=== PATIENT | male | born 1990 | race African-American/Black ===

== ENCOUNTER 2022-10-06 05:56 | Emergency (ER) | payer SELFPAY ==
[~2022-10-06] VITALS: Ht 175 cm; Wt 93.8 kg
[2022-10-06] MEDS ORDERED: cefTRIAXone 500 MG in WATER (STERILE) FOR INJECTION 5 ML IV ONE (06:30)
[2022-10-06] MEDS ORDERED: ACETAMINOPHEN 500 MG TAB (TYLENOL) PO ONE (06:30)
[2022-10-06] MEDS ORDERED: hydrALAZINE (APESOLINE) 20 MG/ML VIAL IV ONE (06:30)
[2022-10-06] MEDS ORDERED: cloNIDine 0.2 MG (CATAPRES) TAB PO ONE (06:30)
[2022-10-06] MEDS ORDERED: amLODIPine 10 MG (NORVASC) TAB PO ONE (06:30)
[2022-10-06] MEDS ORDERED: AZITHROMYCIN 250 MG TAB (ZITHROMAX) PO ONE (06:42)
--- NOTE | 2022-10-06 06:44 | ED GI ---
General Chief Complaint: Rect Problems Stated Complaint: RECTAL PAIN Nursing Triage Note: PATIENT VERBALIZED FOR THE PAST WEEK AND HALF HE HAS HAD RECTAL PAIN/STINGING. DENIES INJURY OR TRAUMA, DENIES BLOOD IN STOOL, NO HX OF HEMORRHOIDS. Source of Information: Patient Exam Limitations: No Limitations (JUANA PRESCOTT DO) History of Present Illness Date Seen by Provider: Oct 06, 2022 Time Seen by Provider: 06:10 Initial Comments Patient is a 31-year-old -[place] male with history of hypertension and anogenital warts who presents with rectal pain for the past week. Patient states that he has a longstanding history of "bumps"next to his anus and that they have recently become painful and are leaking fluid. He has not had recent receptive anal intercourse is currently [place] work [place] from [place]. Patient is concerned that he could have an STD. He denies rectal bleeding but does have pain with bowel movement. There is no care of hemorrhoids. The other symptoms or pain complaints. Patient does have a longstanding history of hypertension takes multiple antihypertensives, but only on days that he feels that it is a problem. He has not had any of his blood pressure medications in the past several days, but does have them available to him at his place of residence. Timing/Duration: 1 Week Severity/Quality: Other Location: Other Radiation: Other Activities at Onset: Other Modifying Factors: Improves With Other Associated Symptoms: Other (JUANA PRESCOTT DO) Location: Other (rectal) Modifying Factors: Worsens With Defecating Associated Symptoms: No Back Pain, No Chest Pain, No Diaphoresis, No Fever/Chills, No Fatigue, No Headache, No Heartburn, No Nausea/Vomiting, No Rash, No Shortness of Air, No Swelling/Mass in Abdomen, No Syncope, No Weakness (YAHAIRA GUNTER MD) Allergies and Home Medications Allergies Coded Allergies: No Known Drug Allergies (Unverified , 10/06/22) Patient Home Medication List Home Medication List Reviewed: Yes (JUANA PRESCOTT DO) Home Medication List Reviewed: Yes (YAHAIRA GUNTER MD) Lidocaine (Lidocaine) 5 % Cream..g., 15 GM TP UD Prescribed by: YAHAIRA GUNTER on 10/06/22 0816 Review of Systems Review of Systems Constitutional: see HPI EENTM: See HPI Respiratory: See HPI Cardiovascular: See HPI Genitourinary: See HPI Musculoskeletal: see HPI Skin: see HPI Psychiatric/Neurological: See HPI (JUANA PRESCOTT DO) Gastrointestinal: See HPI; Denies Rectal Bleeding (YAHAIRA GUNTER MD) Past Sxxjitk-Cqdstv-Blcgkx Hx Patient Social History Tobacco Use?: Yes Tobacco type used: Cigarettes Smoking Status: Current Everyday Smoker Substance use?: No Alcohol Use?: No (JUANA PRESCOTT DO) Tobacco Use?: No Substance use?: No (YAHAIRA GUNTER MD) Immunizations Up To Date Influenza Vaccine Up-to-Date: Yes; Up-to-Date First/Initial COVID19 Vaccinat: 2020 Second COVID19 Vaccination Osvaldo: 2020 (JUANA PRESCOTT DO) Past Medical History Surgery/Hospitalization HX: Hypertension, HIV, Non-compliance with medicine Respiratory: No Cardiac: Yes Hypertension Neurological: No (YAHAIRA GUNTER MD) Physical Exam Vital Signs Vital Signs - First Documented 10/06/22 06:10 Temp 36.6 Pulse 90 Resp 18 B/P (MAP) 209/128 (155) Pulse Ox 100 O2 Delivery Room Air (YAHAIRA GUNTER MD) Vital Signs Capillary Refill : Less Than 3 Seconds (JUANA PRESCOTT DO) Height/Weight/BMI Height: '" Weight: lbs. oz. kg; 30.00 BMI Method: General Appearance: WD/WN, no apparent distress Respiratory: lungs clear Gastrointestinal: non tender, soft Male: other (BB size anal warts with fresh granulation tissue that is cracked. No gross drainage. No hemorrhoids. 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, no motor/sensory deficits, alert, oriented x 3 Skin: normal color, warm/dry (YAHAIRA GUNTER MD) Focused Exam Sepsis Stage: Ruled Out (JUANA PRESCOTT DO) Progress/Results/Core Measures Results/Orders Lab Results Laboratory Tests Test 10/06/22 06:55 10/06/22 07:02 10/06/22 07:17 Range/Units White Blood Count 10.6 4.3-11.0 10^3/uL Red Blood Count 4.78 4.30-5.52 10^6/uL Hemoglobin 15.2 13.3-17.7 g/dL Hematocrit 43 40-54 % Mean Corpuscular Volume 89 80-99 fL Mean Corpuscular Hemoglobin 32 25-34 pg Mean Corpuscular Hemoglobin Concent 36 32-36 g/dL Red Cell Distribution Width 13.7 10.0-14.5 % Platelet Count 261 130-400 10^3/uL Mean Platelet Volume 10.6 9.0-12.2 fL Immature Granulocyte % (Auto) 1 % Neutrophils (%) (Auto) 36 L 42-75 % Lymphocytes (%) (Auto) 55 H 12-44 % Monocytes (%) (Auto) 7 0-12 % Eosinophils (%) (Auto) 1 0-10 % Basophils (%) (Auto) 1 0-10 % Neutrophils # (Auto) 3.8 1.8-7.8 10^3/uL Lymphocytes # (Auto) 5.8 H 1.0-4.0 10^3/uL Monocytes # (Auto) 0.7 0.0-1.0 10^3/uL Eosinophils # (Auto) 0.1 0.0-0.3 10^3/uL Basophils # (Auto) 0.1 0.0-0.1 10^3/uL Immature Granulocyte # (Auto) 0.1 0.0-0.1 10^3/uL Sodium Level 137 135-145 MMOL/L Potassium Level 4.0 3.6-5.0 MMOL/L Chloride Level 104 98-107 MMOL/L Carbon Dioxide Level 22 21-32 MMOL/L Anion Gap 11 5-14 MMOL/L Blood Urea Nitrogen 13 7-18 MG/DL Creatinine 1.00 0.60-1.30 MG/DL Estimat Glomerular Filtration Rate 102 BUN/Creatinine Ratio 13 Glucose Level 96 70-105 MG/DL Calcium Level 9.2 8.5-10.1 MG/DL Corrected Calcium 9.2 8.5-10.1 MG/DL Magnesium Level 2.0 1.6-2.4 MG/DL Total Bilirubin 0.5 0.1-1.0 MG/DL Aspartate Amino Transf (AST/SGOT) 22 5-34 U/L Alanine Aminotransferase (ALT/SGPT) 21 0-55 U/L Alkaline Phosphatase 87 40-136 U/L Troponin I < 0.30 <0.30 NG/ML Pro-B-Type Natriuretic Peptide 181.7 H <125.0 PG/ML Total Protein 8.3 H 6.4-8.2 GM/DL Albumin 4.0 3.2-4.5 GM/DL Urine Color YELLOW Urine Clarity CLEAR Urine pH 7.5 5-9 Urine Specific [place] 1.015 L 1.016-1.022 Urine Protein NEGATIVE NEGATIVE Urine Glucose (UA) NEGATIVE NEGATIVE Urine Ketones NEGATIVE NEGATIVE Urine Nitrite NEGATIVE NEGATIVE Urine Bilirubin NEGATIVE NEGATIVE Urine Urobilinogen 0.2 < = 1.0 MG/DL Urine Leukocyte Esterase NEGATIVE NEGATIVE Urine RBC (Auto) NEGATIVE NEGATIVE Urine RBC NONE /HPF Urine WBC RARE /HPF Urine Squamous Epithelial Cells 2-5 /HPF Urine Crystals NONE /LPF Urine Bacteria NEGATIVE /HPF Urine Casts NONE /LPF Urine Mucus NEGATIVE /LPF Urine Culture Indicated NO Urine Opiates Screen NEGATIVE NEGATIVE Urine Oxycodone Screen NEGATIVE NEGATIVE Urine Methadone Screen NEGATIVE NEGATIVE Urine Propoxyphene Screen NEGATIVE NEGATIVE Urine Barbiturates Screen NEGATIVE NEGATIVE Ur Tricyclic Antidepressants Screen NEGATIVE NEGATIVE Urine Phencyclidine Screen NEGATIVE NEGATIVE Urine Amphetamines Screen NEGATIVE NEGATIVE Urine Methamphetamines Screen NEGATIVE NEGATIVE Urine Benzodiazepines Screen NEGATIVE NEGATIVE Urine Cocaine Screen NEGATIVE NEGATIVE Urine Cannabinoids Screen NEGATIVE NEGATIVE (YAHAIRA GUNTER MD) My Orders Orders - YAHAIRA GUNTER MD Magnesium (10/06/22 07:39) Troponin I Fs (10/06/22 07:39) Probnp Fs (10/06/22 07:39) Ua Culture If Indicated (10/06/22 07:41) (YAHAIRA GUNTER MD) Medications Given in ED Current Medications Medications Dose Ordered Sig/Obie Route Start Time Stop Time Status Last Admin Dose Admin Acetaminophen 1,000 mg ONCE ONCE PO 10/06/22 06:30 10/06/22 06:31 DC 10/06/22 06:35 1,000 MG Amlodipine Besylate 10 mg ONCE ONCE PO 10/06/22 06:30 10/06/22 06:31 DC 10/06/22 06:35 10 MG Ceftriaxone Sodium 500 mg/ Sterile Water 5 ml @ 60 mls/hr ONCE ONCE IV 10/06/22 06:30 10/06/22 06:38 DC 10/06/22 06:56 60 MLS/HR Clonidine HCl 0.2 mg ONCE ONCE PO 10/06/22 06:30 10/06/22 06:31 DC 10/06/22 06:35 0.2 MG Hydralazine HCl 25 mg ONCE ONCE IV 10/06/22 06:30 10/06/22 06:31 DC 10/06/22 06:34 25 MG (YAHAIRA GUNTER MD) Vital Signs/I&O 10/06/22 10/06/22 06:10 06:35 Temp 36.6 36.6 Pulse 90 Resp 18 B/P (MAP) 209/128 (155) Pulse Ox 100 O2 Delivery Room Air (YAHAIRA GUNTER MD) Blood Pressure Mean: 155 Progress Progress Note #1: Progress Note I assumed care of patient from Dr. Prescott at shift change. Labs pending on the patient and monitor his vital signs and blood pressure. Shortly after I took over his care he did get up to go use the bathroom and provide a urine specimen. He ambulated to the bathroom without any difficulty or complaint and provided a mostly clear urine specimen. He continues to show a sinus tachycardia on cardiac campus monitor with heart rate in 110s and regular. Similar to his electrocardiogram from 648 this am he has signs of LVH and ST depression on his cardiac campus monitor. Will add on cardiac enzymes and magnesium in case those were not already ordered and review his lab tests as they come back. He has already been given Hydralazine, clonidine and amlodipine for his elevated blood pressures here in the ED. He is otherwise asymptomatic with the elevated blood pressures as he denies headache, chest pain, blurred vision, nausea, vomiting, shortness of breath. Progress Note #2: Time: 07:42 Progress Note CBC shows his WBC count up to 10.6 with increased lymphocytes on his differential. This could point to more of a viral illness. Chemistry does not show acute significant abnormality and has normal renal function and hepatic function tests. UDS negative for illicit substances. Awaiting add on tests of cardiac enzymes with magnesium and urinalysis. Progress Note #3: Time: 08:12 Progress Note Blood pressure down to 150/90 and heart rate 98 bpm and regular. I have reviewed the lab results with the patient. Advised that the CBC did not show a high WBC for an overwhelming infection and Chemistry panel did not show kidney failure or elevated enzymes to indicate acute cardiac blockages or problem. Magnesium was normal at 2 so this was not contributing to his fast heart rate. No protein or bacteria in urine to indicate kidney problems from the long standing high blood pressure and no bacteria, LE or Nit for urine infection. Advised that his blood pressure was improved and his heart rate was doing better. He states that he had continued rectal pain and was feeling tired after getting the blood pressure medicines. He states that he feels like it may be due to his body used to the lower blood pressure. I confirm form that as his body is having the lower blood pressure he would likely feel more fatigued and rundown initially until he had a chance to get used to the more normal blood pressure instead of always running high. The rectal pain can be playing a role with his high blood pressure and heart rate as well. If there is a secondary infection the antibiotics that Dr. Prescott had given him here would manage that and he would need to follow-up through the clinic for continued care. Discussed possible treatment options for the rectal pain and anal warts. Advised that he may need to have those areas frozen or burned off as well as sometimes there is a prescription cream that could be used. For now we will treat him with lidocaine cream to help numb the area so it was not so painful for him. As Dr. Prescott had already instructed him he should continue to abstain from any anal intercourse until he is followed up. Take his prescription medicines as prescribed. Either establish care locally or once he gets back to his hometown in [place] follow-up through the clinic there. When he follows up they could continue to work on his blood pressure as well as the rectal pain and anal warts. Patient voiced no other questions or concerns and was agreeable with the plan. I confirmed with him that he had prescription medicine with him for his blood pressure and did not need a new prescription of any meds other than the pain cream for his rectal pain. 0833 after the patient had left as I was reviewing his chart in more detail I reviewed his outpatient medication history as the patient lives in [place] and is only here for a short time for work, I wanted to see if he had prescriptions for other blood pressure medicines and what they might be from external medication history. As I reviewed the list is showed he was taking an HIV medicine Bektarvy with a diagnosis of HIV. He had prescriptions for Lisinopril/HCTZ as well as Amlodipine. However the last refills of the BP meds in the external med history were from March 2022. Medication non-compliance certainly can be playing a role with his high blood pressure and fast heart rate. The HIV medicine also increases his risk of life threatening illness along with uncontrolled hypertension. Although he may be immune compromised he has a normal WBC count at this time but unsure about his viral load or CD4 counts. He could have perirectal abscess, anal fistula, anal cancer, cardiomyopathy, heart failure, kidney failure, coronary artery disease. The testing and exam with Dr. Prescott helped to rule out perirectal abscess with his rectal exam as he did not feel a fluctuance or mass. No kidney failure or indication of acute MT based on his chemistry panel and troponin with ECG. He had slightly elevated proBNP but that could be related to LVH with long standing hypertension. Anal fistula and anal cancer would still be possible diagnoses for him but he would need follow up with clinic and possible surgeon about those. Other than his HIV status these possible diagnoses were discussed with him when I reviewed his results and discussed follow up, treatment and return precautions. We discussed taking his bp meds as prescribed and every day as well as using lidocaine to help with pain as the antibiotic shot and pills he took here in Ed will help treat for possible secondary infection. (YAHAIRA GUNTER MD) Initial ECG Impression Date: Oct 06, 2022 Initial ECG Impression Time: 06:49 Initial ECG Rate: 145 Initial ECG Rhythm: S.Tach Initial ECG Comparisson: No Previous ECG Available Comment On my personal independent interpretation and review of his electrocardiogram shows sinus tachycardia with a heart rate of 145 bpm. His AR interval was 127 ms. He has no acute ST elevation. He does have findings for LVH and some ST depression and 1, 2, V4 through V6. He has QT interval 268 ms with a QTc inter zhane 352 ms. He has no prior tracings available for comparison. (YAHAIRA GUNTER MD) Departure Communication (Admissions) EKG: Reveals sinus tach with rate of 145, with findings of LVH with ST changes. There is no ST segment elevation suggestive of acute coronary syndrome. Patient treated presumptively for STD secondary infection. Suspect the patient has new infection in addition to his longstanding genital warts. Chlamydia and gonorrhea swabs obtained Rocephin and Zithromax. Patient instructed to follow- up with local PCP for referral to surgeon or individual with expertise of treati ng anal warts. Patient will require comprehensive STD testing including HSV, HIV and hepatitis. He is instructed to abstain from intercourse until further evaluated. Tylenol was given for pain this morning Patient's blood pressure on ED arrival was 160s over 120s. Patient is a longstanding history of hypertension and is unaware normal blood pressure range. He is unfamiliar with his medications as he i is noncompliant, but does state he has his medications available to him at his residence patient denies headache change in vision palpitations chest pain shortness of breath decreased urinary output. IV hydralazine, oral clonidine and amlodipine given for initial blood pressure management. He is instructed to resume his blood pressure medications per his normal schedule upon returning home and follow-up with local primary care provider on Friday after resuming his medication regimen. Patient understands he has high risk of heart attack stroke and by not taking his medications. Prior to administering IM injection, the patient's heart rate went from 80s to 150s. I suspect this was anxiety reaction. EKG consistent with sinus tach. Lab work is pending. Care to be transitioned to oncoming ERP at 07:00. (JUANA PRESCOTT DO) Impression Primary Impression: Rectal or anal pain Additional Impressions: Anal warts Labile essential hypertension Sinus tachycardia Disposition: , SELF-CARE Condition: Stable Departure-Patient Inst. Decision time for Depature: 08:11 (YAHAIRA GUNTER MD) Referrals: INDRA NORRIS DO NO,LOCAL PHYSICIAN (PCP) Primary Care Physician [facility] Patient Instructions: High Blood Pressure ED, Human Papillomavirus (HPV), STD Prevention, Tachycardia (DC), High Blood Pressure Emergencies, DASH Diet Add. Discharge Instructions: Be more diligent in taking your blood pressure medicines every day as prescribed to help get better control of your blood pressure. Follow up with a primary care clinic and you may need to see surgeon about your rectal pain and genital warts. Primary care clinic can also help with getting better control of your blood pressures. You could call the [facility] at [phone] here in [place] to see about establishing care with local provider for while you are here in [place]. Dr. Norris is the local surgeon candle extrusion machine operator and you could also try follow up with him regarding the genital warts and rectal pain. Try to follow a DASH diet to try and help with your blood pressure control. Increase the fiber in your diet to have soft and regular stools. When you follow up for the rectal pain and genital warts you should check with the provider about treatment options such as freezing or burning the warts off or possibly using Imiquimod (Aldara) cream to treat the area. In the meantime try using the numbing medicine to help with the pain as the antibiotics from today have a change to kick in and try to improve your symptoms. All discharge instructions reviewed with patient and/or family. Voiced understanding. Scripts Lidocaine (Lidocaine) 5 % Cream..g. 15 GM TP UD for Rectal pain for 7 Days, #30 GM 0 Refills Apply thin layer of cream to rectum twice a day as needed for pain Prov: YAHAIRA GUNTER MD 10/06/22 JUANA PRESCOTT DO Oct 06, 2022 06:44 YAHAIRA GUNTER MD Oct 06, 2022 07:36
[2022-10-06 07:14] LABS: BASOPHILS # (AUTO) 0.1 10^3/uL (0.0-0.1); BASOPHILS % (AUTO) 1 % (0-10); EOSINOPHILS # (AUTO) 0.1 10^3/uL (0.0-0.3); EOSINOPHILS % (AUTO) 1 % (0-10); HEMATOCRIT 43 % (40-54); HEMOGLOBIN 15.2 g/dL (13.3-17.7); LYMPHOCYTES # (AUTO) 5.8 10^3/uL (1.0-4.0); LYMPHOCYTES % (AUTO) 55 % (12-44); MEAN CORPUSCULAR HEMOGLOBIN 32 pg (25-34); MEAN CORPUSCULAR HGB CONC 36 g/dL (32-36); MEAN CORPUSCULAR VOLUME 89 fL (80-99); MEAN PLATELET VOLUME 10.6 fL (9.0-12.2); MONOCYTES # (AUTO) 0.7 10^3/uL (0.0-1.0); MONOCYTES % (AUTO) 7 % (0-12); NEUTROPHILS # (AUTO) 3.8 10^3/uL (1.8-7.8); NEUTROPHILS % (AUTO) 36 % (42-75); PLATELET COUNT 261 10^3/uL (130-400); WHITE BLOOD COUNT 10.6 10^3/uL (4.3-11.0)
[2022-10-06 07:37] LABS: AMPHETAMINE SCREEN, URINE NEGATIVE (NEGATIVE); BARBITURATE SCREEN URINE NEGATIVE (NEGATIVE); BENZODIAZEPINES SCREEN URINE NEGATIVE (NEGATIVE); CANNABINOID SCREEN, URINE NEGATIVE (NEGATIVE); COCAINE SCREEN URINE NEGATIVE (NEGATIVE); METHADONE STAT NEGATIVE (NEGATIVE); OPIATE SCREEN URINE NEGATIVE (NEGATIVE); OXYCODONE STAT NEGATIVE (NEGATIVE); PROPOXYPHENE STAT NEGATIVE (NEGATIVE); TRICYCLIC ANTIDEPRESSANTS SCRE NEGATIVE (NEGATIVE)
[2022-10-06 07:37] LABS: BILIRUBIN,TOTAL 0.5 MG/DL (0.1-1.0); CALCIUM 9.2 MG/DL (8.5-10.1)
[2022-10-06 07:38] LABS: TOTAL PROTEIN 8.3 GM/DL (6.4-8.2)
[2022-10-06 07:45] LABS: BILIRUBIN,URINE NEGATIVE (NEGATIVE); CLARITY,URINE CLEAR; COLOR,URINE YELLOW; GLUCOSE, URINE (UA) NEGATIVE (NEGATIVE); KETONES,URINE NEGATIVE (NEGATIVE); LEUKOCYTE ESTERASE ,URINE NEGATIVE (NEGATIVE); NITRITE,URINE NEGATIVE (NEGATIVE); PH,URINE 7.5 (5-9); PROTEIN,URINE NEGATIVE (NEGATIVE)
[2022-10-06 07:50] LABS: BACTERIA,URINE NEGATIVE /HPF; WBC,URINE RARE /HPF
[2022-10-06] MEDS ORDERED: LIDO15CR9 TP (08:16)
[2022-10-06 08:18] VITALS: BP 150/90
[2022-10-06] MEDS ORDERED: AZITHROMYCIN 250 MG TAB (ZITHROMAX) PO SCH (09:00)
== END 2022-10-06 08:19 | disposition home or self-care (01) ==
LOC: ER FS 06:05
DX: A63.0 Anogenital (venereal) warts (principal); I10 Essential (primary) hypertension; R00.0 Tachycardia, unspecified; F17.210 Nicotine dependence, cigarettes, uncomplicated; Z28.310 Unvaccinated for COVID-19
CPT/HCPCS: 36415; 80053; 80306; 81000; 83735; 83880; 84484; 85025; 87491; 87591; 93005; 93041; 96365; 96375